=== PATIENT | female | born 1995 | race Caucasian/White ===

== ENCOUNTER 2023-08-28 15:58 | Emergency (ER) | payer OTHER, SELFPAY ==
[2023-08-28 16:03] VITALS: BP 131/97; BMI 29.8
[2023-08-28 16:43] LABS: % Eosinophils 2.4 % (0-6); % Immature Granulocytes 0.5 % (0-0.5); % Lymphocytes 37.9 % (20.5-51.1); % Monocytes 10.6 % (1.7-9.3); % Neutrophils 47.6 % (42.2-75.2); Absolute Basophils 0.1 10^3/uL (0-0.2); Absolute Eosinophils 0.2 10^3/uL (0-0.7); Absolute Lymphocytes 2.4 10^3/uL (1.2-3.4); Absolute Monocytes 0.7 10^3/uL (0.1-0.6); Hematocrit 43.2 % (37.0-47.0); Hemoglobin 14.8 g/dL (12.0-16.0); Mean Corp Hgb Conc. 34.3 g/dL (33.0-37.0); Mean Corpuscular Hgb 34.1 pg (27.0-31.0); Mean Corpuscular Volume 99.5 fL (81.0-99.0); Mean Platelet Volume 9.3 fL (7.4-10.4); Nucleated Red Blood Cells % 0 %; Platelet Count 240 10^3/uL (130-400); Red Blood Cell Count 4.34 10^6/uL (4.20-5.40); Red Cell Dist. Width 12.9 % (11.5-14.5); White Blood Cell Count 6.2 10^3/uL (4.8-10.8)
[2023-08-28 16:50] LABS: ALT (SGPT) 163 U/L (0-35); AST (SGOT) 214 U/L (14-36); Albumin 4.8 g/dl (3.5-5.0); Alkaline Phosphatase 92 U/L (38-126); Blood Urea Nitrogen 7 mg/dl (7-17); Calcium 9.1 mg/dl (8.4-10.2); Carbon Dioxide 27 mmol/L (22-30); Chloride 108 mmol/L (98-107); Estimated Creatinine Clearance > 125 ml/min; Glucose 100 mg/dl (70-99); Potassium 4.4 mmol/L (3.5-5.1); Sodium 144 mmol/L (135-145); Total Bilirubin 0.4 mg/dl (0.2-1.3); Total Protein 8.2 g/dl (6.3-8.2); eGFR > 60.00
[2023-08-28 16:59] LABS: Troponin I < 0.012 ng/ml
[2023-08-28 17:08] LABS: Alcohol 433 mg/dl
--- NOTE | 2023-08-28 20:20 | ED.GENMED ---
History of Present Illness
General
Chief Complaint: Chest Pain
Source: patient
Exam Limitations: none
Time Seen by Provider: 08/28/23 19:53
Travel History
Have you had any contact with someone who has COVID-19?: No
Do you have any symptoms of coronavirus? Fever > 100 degrees, chills, cough, shortness of breath, sore throat, loss of taste or smell, muscle aches, or headache?: No
History of Present Illness
History of Present Illness:
28-year-old female presents complaining of ongoing abdominal pain and now worsening chest pain over the past week. Pain is sharp in nature fairly constant but made worse with eating. Does not radiate to the back or neck. No associated fever
cough or shortness of breath. She does admit to daily alcohol use. She has been on omeprazole by her family doctor for about 2 weeks without significant improvement. Denies any dark or tarry stools. She has 1-2 red bowls a day. Denies regular
NSAID use. No other complaints at this time.
Past History
Past History
ED Past Medical History: Psychiatric (ADHD)
ED Past Surgical History: None
Social History
Tobacco: Smoker
Personal: Single
Living: with family
Employment: Employed (Cyber Systems Administrator)
Phy Exam
Physical Exam
Physical Exam:
General: Well-appearing female no acute respiratory distress HEENT: Normocephalic atraumatic
Mucosa moist neck is supple
Heart: Regular rate and rhythm no murmurs lungs: Clear no wheeze or rales
Abdomen: Soft mildly tender in the epigastric region no guarding rebound normal bowel sounds nondistended negative Harris sign
Extremities: No cyanosis or edema
Skin: Warm neurovascularly
Neurologic exam: Alert and oriented to person and place. No slurred speech or facial asymmetry
Scores
Heart Score for Chest Pain Patients
STEMI patient?: No
History: Slightly or Non-Suspicious
ECG: Normal
Age: </= 45 years
Risk Factors: No Risk Factors
Troponin: </= Normal Limit
Heart Score for Chest Pain Patients: 0
Heart Score Risk: 2.5% MACE over next 6 weeks
Course
Orders/Labs/Results
Orders:
Orders
08/28/23 16:01
ECG [Electrocardiogram (*1)] Urgent
Reason for Study: Chest Pain
EKG- Treatment ONCE
08/28/23 16:27
Alcohol Urgent
Complete Blood Count/With Diff Urgent
Comprehensive Metabolic Panel Urgent
Lipase Urgent
Comment: ADD ON
Troponin I Urgent
08/28/23 20:06
Add On- LAB Urgent
Tests Added?: lipase
0.9% Sodium Chloride 1000 ml [Nss] 1,000 ml IV BOLUS
Famotidine [Pepcid] 20 mg IV NOW STA
Abnormal Lab Results
08/28/23
16:27
MCV 99.5 H fL
(81.0-99.0)
MCH 34.1 H pg
(27.0-31.0)
Absolute Monos (auto) 0.7 H 10^3/uL
(0.1-0.6)
Monocytes % 10.6 H %
(1.7-9.3)
Chloride 108 H mmol/L
(98-107)
Glucose 100 H mg/dl
(70-99)
AST 214 H U/L
(14-36)
ALT 163 H U/L
(0-35)
Alcohol, Quantitative 433 H* mg/dl
08/28/23 16:27
08/28/23 16:27
Vital Signs
Initial and Last Documented VS:
Initial Vital Signs
Temp Pulse Resp BP Pulse Ox
98 F 94 16 131/97 99
08/28/23 16:03 08/28/23 16:03 08/28/23 16:03 08/28/23 16:03 08/28/23 16:03
Last Documented Vital Signs
Temp Pulse Resp BP Pulse Ox
98 F 92 13 131/97 96
08/28/23 16:03 08/28/23 20:03 08/28/23 20:03 08/28/23 16:03 08/28/23 20:03
MDM/Problems Addressed
Differential Diagnosis Includes:
Epigastric chest pain. Differential could include gastritis versus pancreatitis versus ACS
Patient admits to regular alcohol use. Alcohol level today is 433. Lipase is pending. Troponin undetectable. Do not suspect ACS given negative troponin, EKG and duration of symptoms.
Offered her crisis intervention specialist help through [facility] however the patient declined. Transaminases slightly elevated consistent with alcohol abuse
*Critical Care Note
Total Time (30-74mins, 75-104mins- exclusive of procedures): Not Applicable
Update Note
Update Note:
Lipase normal. Patient reevaluated expresses her desire to go home. She is with her mother. Mother will take her home. Recommended close follow-up with family doctor. Continue PPI. Advised cessation of alcohol
ED Attending Note
-
Portions of this chart may have been created with voice recognition software.� Occasional wrong word or��sound alike� substitutions may have occurred due to the inherent limitations of voice recognition software.
Discharge Plan
Departure
Patient Disposition: Home (Routine Discharge)
Date of Disposition: 08/28/23
Time of Disposition: 21:35
Patient with high blood pressure during this ER visit?: No
Discharge Problem:
Abdominal pain
Instructions: Alcohol Use Disorder ED, Abdominal Pain
Prescriptions:
No Action
No Current Medications
0
Referrals:
Poncho Krishnamurthy MD [Family Provider] -
Activity Restrictions/Additional Instructions:
Continue your antacid. Try to limit alcohol use. Follow-up with your family doctor. Return if worse otherwise
Interventions
Interventions:
*Risk Screen - Suicide Last Done: 08/28/23 16:03
*Neglect/Abuse Screening Last Done: 08/28/23 16:03
*ED COVID-19 Vaccine History Last Done: 08/28/23 16:03
ED- Cardiac Assessment Last Done: 08/28/23 20:04
[2023-08-28] MEDS: NSS 1000 IV (20:38)
[2023-08-28] MEDS: PEPCID 20 MG IV (20:38)
[2023-08-28 20:41] LABS: Lipase 84 U/L (23-300)
[2023-08-28 21:50] VITALS: BP 124/99
== END 2023-08-28 21:54 | disposition home or self-care (01) ==
LOC: EMR 15:58
PROVIDERS: Emergency Medicine; EMERGENCY PHYSICIAN Emergency Medicine; FAMILY PHYSICIAN Family Medicine
DX: R10.9 Unspecified abdominal pain (principal); F10.90 Alcohol use, unspecified, uncomplicated; Y90.8 Blood alcohol level of 240 mg/100 ml or more; F17.200 Nicotine dependence, unspecified, uncomplicated
CPT/HCPCS: 99284; 96374; 96361; 80053; 82077; 83690; 84484; 85025; 93005

== ENCOUNTER → 2024-04-03 09:59 | Outpatient (REF) | payer OTHER, SELFPAY | LOC: RAD 09:59 | PROVIDERS: ATTENDING PHYSICIAN Obstetrics & Gynecology; FAMILY PHYSICIAN Family Medicine | DX: N91.2 Amenorrhea, unspecified (principal) | CPT/HCPCS: 76801; 76817 ==

== ENCOUNTER 2024-11-26 13:47 | Emergency (ER) | payer SELFPAY ==
[2024-11-26 13:52] VITALS: BP 130/90
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
== END 2024-11-26 17:57 | disposition home or self-care (01) ==
LOC: EMR 13:47
PROVIDERS: EMERGENCY PHYSICIAN Emergency Medicine; FAMILY PHYSICIAN Nurse Practitioner Family
DX: S06.0XAA Concussion with loss of consciousness status unknown, initial encounter (principal); S00.81XA Abrasion of other part of head, initial encounter; V43.52XA Car driver injured in collision with other type car in traffic accident, initial encounter; Y92.410 Unspecified street and highway as the place of occurrence of the external cause; F17.200 Nicotine dependence, unspecified, uncomplicated; F90.9 Attention-deficit hyperactivity disorder, unspecified type
CPT/HCPCS: 99284; 70450